=== PATIENT | female | born 1965 | race Caucasian/White ===

== ENCOUNTER → 2020-11-22 | Outpatient (CLI) | payer OTHER ==
--- NOTE | 2020-11-22 13:43 | RAD ---
EXAM: 1. LUMBAR SPINE 3 VIEWS. 2. RIGHT KNEE 2 VIEWS. HISTORY: Low back and right knee pain. COMPARISON: None. FINDINGS: Lumbar alignment is maintained. Vertebral body heights are maintained, and no fractures are identified. End plate remodeling indicates mild degenerative disc disease at L3-4. Facet osteoarthri tis is mild to moderate at L5-S1. Alignment of the right knee is normal. No fractures are identified. Joint spaces are maintained. Ther e is no joint effusion. IMPRESSION: 1. Early degenerative disc disease at L3-4. Mild to moderate facet osteoarthritis at L5-S1. 2. No fracture or clear degenerative change at the right knee. Electronically signed by: Zane Mayo MD (11/22/2020 12:38 PM) [id number]
== END ==
LOC: RAD 10:02
PROVIDERS: ATTEND Family Medicine
DX: M47.817 Spondylosis without myelopathy or radiculopathy, lumbosacral region (principal); M25.561 Pain in right knee; Z02.71 Encounter for disability determination
CPT/HCPCS: 72100; 73560

== ENCOUNTER → 2021-01-11 | Outpatient (CLI) | payer MEDICAID ==
--- NOTE | 2021-01-11 14:06 | RAD ---
EXAM: BILATERAL DIGITAL SCREENING MAMMOGRAPHY. HISTORY: Routine mammographic screening. TECHNIQUE: Bilateral full field digital images were obtained in CC and MLO projections. Computer-aide d detection was applied. COMPARISON: None available. This is interpreted as a baseline study. COMPOSITION: B. There are scattered areas of fibroglandular density. FINDINGS: A small nodule inferomedially on the right has an ill-defined border. A reniform nodule laterally on the left is consistent with a benign lymph node. There is no suspiciou s finding on the left. BI-RADS CATEGORY 0: Incomplete--Needs Additional Imaging Evaluation. RECOMMENDATION: 1. Ultrasound of a small nodule inferomedially 2.5 cm from the right nipple to establish patient's ba seline. Electronically signed by: Zane Mayo MD (01/11/2021 2:03 PM) [id number]
== END ==
LOC: MAMMO 10:07
PROVIDERS: ATTEND Family Medicine
DX: Z12.31 Encounter for screening mammogram for malignant neoplasm of breast (principal)
CPT/HCPCS: 77067

== ENCOUNTER → 2021-01-16 | Outpatient (CLI) | payer MEDICAID ==
--- NOTE | 2021-01-16 11:34 | RAD ---
INDICATION: 55 year-old female presents for further evaluation of an abnormality seen on prior screen ing mammogram. TECHNIQUE: Targeted high resolution sonography of the right medial, inferior breast was performed. COMPARISON: 01/11/2021 ULTRASOUND FINDINGS: Targeted ultrasound of the mammographic area of concern was performed. 3:00 position, 2.5 cm from the nipple: A near anechoic mass of circumscribed margins and internal natalie ogeneous low level echoes is present with parallel orientation and is of oval/round shape. There is n o internal vascularity on Doppler interrogation. It demonstrates posterior acoustic enhancement and m easures 0.5 x 0.4 x 0.4 cm. IMPRESSION: Probably benign finding. RECOMMENDATION: Recommend 6 month ultrasound follow up. BI-RADS 3: Probably Benign Electronically signed by: Jerry Olmstead MD (01/16/2021 11:32 AM) [id number]
== END ==
LOC: US 10:35
PROVIDERS: ATTEND Family Medicine
DX: N63.14 Unspecified lump in the right breast, lower inner quadrant (principal); R92.8 Other abnormal and inconclusive findings on diagnostic imaging of breast
CPT/HCPCS: 76641